=== PATIENT | female | born 1955 | race American Indian/Alaskan Native ===

== ENCOUNTER 2019-05-24 17:49 | Emergency (ER) | payer SELFPAY ==
[2019-05-24 21:15] VITALS: BP 158/90
--- NOTE | 2019-05-24 21:17 | Emergency Department Report ---
Chief Complaint: Burn/Smoke Inhalation Stated Complaint: EXPOSE TO HAZAROUS GAS - HPI History of Present Illness: Pt is a 63 y/o F p/w a cc of GIBSON and nausea. The pt has had a GIBSON intermittently and nausea x 1 month. Today the pt had [facility] gas come to evaluate the house and found high levels of carbon monoxide. - Exam Vital Signs: Vital Signs 05/24/19 21:12 Temperature 98 F Pulse Rate 85 Respiratory 18 Rate Blood Pressure 158/90 O2 Sat by Pulse 99 Oximetry MSE screening note: Focused history and physical exam performed. Due to findings the following was ordered: cbc, bmp, carboxyhem ED Disposition for MSE Condition: Stable
[2019-05-24 21:37] LABS: Basophils % (Auto) 0.5 % (0.0-1.8); Eosinophils % (Auto) 0.6 % (0.0-4.3); Hematocrit 39.2 % (30.3-42.9); Hemoglobin 13.5 gm/dl (10.1-14.3); Lymphocytes # (Auto) 2.4 K/mm3 (1.2-5.4); Lymphocytes % (Auto) 31.2 % (13.4-35.0); Mean Corpuscular HGB Conc 35 % (30-34); Mean Corpuscular Volume 98 fl (79-97); Monocytes # (Auto) 0.5 K/mm3 (0.0-0.8); Monocytes % (Auto) 7.1 % (0.0-7.3); Platelet Count 235 K/mm3 (140-440); Red Blood Count 4.01 M/mm3 (3.65-5.03); Red Cell Distribution Width 15.1 % (13.2-15.2)
[2019-05-24 21:57] LABS: BUN/Creatinine Ratio 14; Blood Urea Nitrogen 11 mg/dL (7-17); Calcium 10.1 mg/dL (8.4-10.2); Hemolysis Index 2
--- NOTE | 2019-05-25 00:22 | Emergency Department Report ---
- General Chief Complaint: Burn/Smoke Inhalation Stated Complaint: EXPOSE TO HAZAROUS GAS Source: patient Mode of arrival: Ambulatory Limitations: No Limitations - History of Present Illness Initial Comments: Patient is a 63-year-old -[place] female with no past medical history presents to the ED with a complaint of acute onset persistent severe nasal and sinus congestion, persistent dry cough for the last 1 month. Patient states that carbon monoxide gas was detected in their house and that she would like to be tested for the same in case there is carbon monoxide in the blood. Patient denies shortness of breath, dizziness, syncope, chest pain, palpitations, fever, chills, sore throat, nausea and vomiting. MD Complaint: cough, rhinorrhea, nasal congestion, sinus pain -: Gradual, month(s) (1) Severity: moderate Severity scale (0 -10): 3 Quality: dull, aching Consistency: intermittent Improves With: nothing Worsens With: nothing Context: sick contacts Associated Symptoms: denies other symptoms, headache, nasal congestion, cough. denies: fever, myalgias, diaphoresis, sore throat, abdominal pain, nausea, vomiting, diarrhea, rash, confusion, weight loss, epistaxis, hoarseness, ear pain, other Treatments Prior to Arrival: none - Related Data Previous Rx's Medication Instructions Recorded Last Taken Type Fluticasone Propionate [Flonase] 2 sprays NS QDAY #1 spray 10/16/13 Unknown Rx Loratadine (Nf) [Claritin (Nf)] 10 mg PO DAILY #30 tablet 10/16/13 Unknown Rx Azithromycin [Zithromax Z-NIECY] 250 mg PO DAILY #6 tablet 07/25/14 Unknown Rx Triamcinolone 0.025% [Kenalog 1 applic TP BID PRN #1 tube 07/25/14 Unknown Rx 0.025% CREAM] DOXYCYCLINE Hyclate [Vibramycin 100 mg PO BID #14 capsule 08/21/14 Unknown Rx CAP] diphenhydrAMINE [Benadryl ORAL LIQ] 25 mg PO Q4-6H PRN #150 ml 08/07/15 Unknown Rx predniSONE [Deltasone] 2 tab PO QDAY #10 tab 08/07/15 Unknown Rx Benzonatate [Tessalon Perles] 100 mg PO Q8HR #30 capsule 05/25/19 Unknown Rx Cetirizine HCl [Zyrtec 10mg tab] 10 mg PO DAILY #30 tablet 05/25/19 Unknown Rx Doxycycline Hyclate 100 mg PO Q12H #20 tablet. 05/25/19 Unknown Rx methylPREDNISolone [Medrol 4MG 4 mg PO DAILY #21 tab.ds.pk 05/25/19 Unknown Rx DOSEPAK (21 tabs)] Allergies Allergy/AdvReac Type Severity Reaction Status Date / Time Penicillins Allergy Unknown Verified 08/07/15 18:49 ED Review of Systems ROS: Stated complaint: EXPOSE TO HAZAROUS GAS Other details as noted in HPI Constitutional: denies: chills, fever Eyes: denies: eye pain, eye discharge, vision change ENT: congestion. denies: ear pain, throat pain Respiratory: cough. denies: shortness of breath, wheezing Cardiovascular: denies: chest pain, palpitations Endocrine: no symptoms reported Gastrointestinal: denies: abdominal pain, nausea, diarrhea Genitourinary: denies: urgency, dysuria, discharge Musculoskeletal: denies: back pain, joint swelling, arthralgia Skin: denies: rash, lesions Neurological: headache. denies: weakness, paresthesias Psychiatric: denies: anxiety, depression Hematological/Lymphatic: denies: easy bleeding, easy bruising ED Past Medical Hx - Past Medical History Previous Medical History?: Yes Hx Psychiatric Treatment: Yes ("MOOD SWINGS") - Surgical History Past Surgical History?: Yes Additional Surgical History: hysterectomy - Social History Smoking Status: Never Smoker Substance Use Type: None - Medications Home Medications: Home Medications Medication Instructions Recorded Confirmed Last Taken Type Fluticasone Propionate [Flonase] 2 sprays NS QDAY #1 spray 10/16/13 Unknown Rx Loratadine (Nf) [Claritin (Nf)] 10 mg PO DAILY #30 tablet 10/16/13 Unknown Rx Azithromycin [Zithromax Z-NIECY] 250 mg PO DAILY #6 tablet 07/25/14 Unknown Rx Triamcinolone 0.025% [Kenalog 1 applic TP BID PRN #1 tube 07/25/14 Unknown Rx 0.025% CREAM] DOXYCYCLINE Hyclate [Vibramycin 100 mg PO BID #14 capsule 08/21/14 Unknown Rx CAP] diphenhydrAMINE [Benadryl ORAL LIQ] 25 mg PO Q4-6H PRN #150 ml 08/07/15 Unknown Rx predniSONE [Deltasone] 2 tab PO QDAY #10 tab 08/07/15 Unknown Rx Benzonatate [Tessalon Perles] 100 mg PO Q8HR #30 capsule 05/25/19 Unknown Rx Cetirizine HCl [Zyrtec 10mg tab] 10 mg PO DAILY #30 tablet 05/25/19 Unknown Rx Doxycycline Hyclate 100 mg PO Q12H #20 tablet.dr 05/25/19 Unknown Rx methylPREDNISolone [Medrol 4MG 4 mg PO DAILY #21 tab.ds.pk 05/25/19 Unknown Rx DOSEPAK (21 tabs)] ED Physical Exam - General Limitations: No Limitations General appearance: alert, in no apparent distress - Head Head exam: Present: atraumatic, normocephalic, normal inspection - Eye Eye exam: Present: normal appearance, PERRL, EOMI Pupils: Present: normal accommodation - ENT ENT exam: Present: normal exam, normal orophraynx, mucous membranes moist, TM's normal bilaterally, normal external ear exam, other (grossly congested nasal passages; palpable frontal sinus tenderness) - Neck Neck exam: Present: normal inspection, full ROM. Absent: tenderness - Respiratory Respiratory exam: Present: normal lung sounds bilaterally. Absent: respiratory distress, wheezes, rales, stridor, chest wall tenderness, accessory muscle use, prolonged expiratory - Cardiovascular Cardiovascular Exam: Present: regular rate, normal rhythm, normal heart sounds. Absent: systolic murmur, diastolic murmur, rubs, gallop - GI/Abdominal GI/Abdominal exam: Present: soft, normal bowel sounds. Absent: tenderness, guar ding, rebound, hyperactive bowel sounds, hypoactive bowel sounds, organomegaly - Extremities Exam Extremities exam: Present: normal inspection, full ROM, normal capillary refill - Back Exam Back exam: Present: normal inspection, full ROM. Absent: tenderness, CVA tenderness (R), CVA tenderness (L), muscle spasm, vertebral tenderness - Neurological Exam Neurological exam: Present: alert, oriented X3, CN II-XII intact, normal gait, reflexes normal - Psychiatric Psychiatric exam: Present: normal affect, normal mood - Skin Skin exam: Present: warm, dry, intact, normal color. Absent: rash ED Course Vital Signs 05/24/19 21:12 Temperature 98 F Pulse Rate 85 Respiratory 18 Rate Blood Pressure 158/90 O2 Sat by Pulse 99 Oximetry ED Medical Decision Making - Lab Data Result diagrams: 05/24/19 21:22 05/24/19 21:22 - Medical Decision Making This is a 63-year-old female who presented to the ED with nasal and sinus congestion, dry cough, frontal sinus pressure and a headache for over one month. In the ED, patient is alert and oriented 3 and is not in any distress with normal vital signs. Lab test results were reviewed and are nonactionable including carboxyhemoglobin level. Patient was discharged home on medications and advised to follow-up with her primary care physician in 5-7 days for reevaluation, or return to the ED immediately if symptoms get worse. - Differential Diagnosis URI; Sinusitis; bronchitis; Pneumonia; flu Critical care attestation.: If time is entered above; I have spent that time in minutes in the direct care of this critically ill patient, excluding procedure time. ED Disposition Clinical Impression: Acute upper respiratory infection Acute bronchitis Qualifiers: Bronchitis organism: unspecified organism Qualified Code(s): J20.9 - Acute bronchitis, unspecified Acute frontal sinusitis Qualifiers: Recurrence: non-recurrent Qualified Code(s): J01.10 - Acute frontal sinusitis, unspecified Disposition: DC-01 TO HOME OR SELFCARE Is pt being admited?: No Does the pt Need Aspirin: No Condition: Stable Instructions: Acute Bronchitis (ED), Upper Respiratory Infection (ED), Acute Bacterial Rhinosinusitis (ED) Additional Instructions: Take medications with food, drink plenty of fluids and follow-up with her primary care physician in 5-7 days for reevaluation. Return to the ED immediately if symptoms get worse. Prescriptions: Doxycycline Hyclate 100 mg PO Q12H #20 tablet. methylPREDNISolone [Medrol 4MG DOSEPAK (21 tabs)] 4 mg PO DAILY #21 tab.ds.pk Benzonatate [Tessalon Perles] 100 mg PO Q8HR #30 capsule Cetirizine HCl [Zyrtec 10mg tab] 10 mg PO DAILY #30 tablet Referrals: STACI OLIVER MD [Staff Physician] - 3-5 Days Time of Disposition: 00:23 Print Language: GREENLANDIC
== END 2019-05-25 00:26 | disposition home or self-care (01) ==
LOC: ED 17:49
DX: J01.10 Acute frontal sinusitis, unspecified (principal); J20.9 Acute bronchitis, unspecified; J06.9 Acute upper respiratory infection, unspecified; Z90.710 Acquired absence of both cervix and uterus; Z79.899 Other long term (current) drug therapy; Z88.0 Allergy status to penicillin
CPT/HCPCS: 36415; 80048; 82375; 85025; 99283